=== PATIENT | male | born 2005 | race Two or more races ===

== ENCOUNTER 2024-04-19 22:05 | Emergency (ER) | payer OTHER ==
[~2024-04-19] VITALS: Ht 170.2 cm; Wt 104.5 kg
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
[2024-04-20 00:08] VITALS: BP 129/83; PULSE 79; RESP 18; TEMP 98.1; O2SAT 97
[2024-04-20] MEDS ORDERED: METH-1181 PO (00:16)
[2024-04-20] MEDS ORDERED: IBUP-1456 PO (00:16)
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
== END 2024-04-20 00:35 | disposition home or self-care (01) ==
LOC: ER 22:05
DX: S13.4XXA Sprain of ligaments of cervical spine, initial encounter (principal); S39.012A Strain of muscle, fascia and tendon of lower back, initial encounter; V43.52XA Car driver injured in collision with other type car in traffic accident, initial encounter; Y93.I9 Activity, other involving external motion; Y92.488 Other paved roadways as the place of occurrence of the external cause; Y99.8 Other external cause status
CPT/HCPCS: 72040; 72100